=== PATIENT | female | born 1950 | race Caucasian/White ===

== ENCOUNTER → 2023-10-22 16:34 | Outpatient (REF) | payer MEDICARE, SELFPAY | LOC: PAVMRI 16:34 | PROVIDERS: ATTENDING PHYSICIAN Orthopaedic Surgery; FAMILY PHYSICIAN Family Medicine | DX: M25.512 Pain in left shoulder (principal); M25.511 Pain in right shoulder | CPT/HCPCS: 73221 ==

== ENCOUNTER 2023-10-28 07:08 | Inpatient (IN) | payer MEDICARE, SELFPAY ==
--- NOTE | 2023-09-23 12:23 | CM ---
Patient is scheduled for an elective L THR on 10/28/23. Spoke with patient prior to surgery via telephone. Patient had a R TKR (2018) and L TKR (2016). Reintroduced role of Orthopedic Navigator. Patient reports that she lives alone in a two story
home. There are three steps to enter and a flight of steps to the second floor. She currently functions independently and uses a cane. She also has a rolling walker, raised toilet seat with rails and shower seat. She has had VN services through
[facility]. PCP is Dr. Ye Kowalski.
Discussed orthopedic program and post surgical plans. Reviewed anticipated length of stay and that goal is for her to return home at discharge. Also reviewed outpatient PT. Patient is in agreement with tentative plan and will go directly to
outpatient PT at [facility] [place]. She states that her brother stay with her after surgery.
Patient will complete online education.
Plan: Orthopedic Navigator will remain available to assist with the care of patient and will reassess discharge needs after surgery.
[2023-10-07 14:14] VITALS: BMI 38.1
[2023-10-07 14:45] LABS: Hematocrit 36.2 % (37.0-47.0); Hemoglobin 11.6 g/dL (12.0-16.0); Mean Corpuscular Hgb 27.7 pg (27.0-31.0); Mean Corpuscular Volume 86.4 fL (81.0-99.0); Platelet Count 242 10^3/uL (130-400); Red Blood Cell Count 4.19 10^6/uL (4.20-5.40); Red Cell Dist. Width 13.3 % (11.5-14.5); White Blood Cell Count 5.3 10^3/uL (4.8-10.8)
[2023-10-07 15:40] LABS: ALT (SGPT) 18 U/L (0-35); AST (SGOT) 23 U/L (14-36); Albumin 4.3 g/dl (3.5-5.0); Alkaline Phosphatase 60 U/L (38-126); Blood Urea Nitrogen 20 mg/dl (7-17); Calcium 9.9 mg/dl (8.4-10.2); Carbon Dioxide 25 mmol/L (22-30); Chloride 105 mmol/L (98-107); Estimated Creatinine Clearance 62 ml/min; Glucose 103 mg/dl (70-99); Potassium 4.1 mmol/L (3.5-5.1); Sodium 140 mmol/L (135-145); Total Bilirubin 0.6 mg/dl (0.2-1.3); Total Protein 6.8 g/dl (6.3-8.2); eGFR > 60.00
[2023-10-07 15:59] VITALS: BMI 38.1
[2023-10-08 13:14] LABS: Glycohemoglobin (HgbA1c) 5.9 % (4.0-5.6)
[2023-10-28] VITALS (17 sets, daily range): BP systolic 99–165; BP diastolic 53–78; PULSE 60; O2SAT 95–96; BMI 38.1
[2023-10-28] MEDS: NORMOSOL-R 1000 IV ×2 (08:07→13:00)
[2023-10-28] MEDS: TYLENOL 650 MG PO ×5 (08:08→23:36)
[2023-10-28] MEDS: ROXICODONE 5 MG PO (11:29)
--- NOTE | 2023-10-28 13:23 | PTCARENOTE ---
1320: Patient arrived to 2S post L THR. Full head to toe assessment completed. B/L LE neurovascular assessment completed. Aquacell on L hip clean dry and intact. IVF running per order. Call mercedes within reach and bed in lowest position. Patients
friend at bedside.
[2023-10-28] MEDS: EDECRIN 50 MG PO (14:06)
[2023-10-28] MEDS: BUSPAR 15 MG PO ×2 (14:07→20:48)
[2023-10-28] MEDS: APRESOLINE 25 MG PO (14:07)
[2023-10-28] MEDS: VITAMIN D3 (cholecalciferol) 50 MCG PO (14:07)
[2023-10-28] MEDS: LOTREL 1 CAPSULE PO (14:07)
[2023-10-28] MEDS: SYNTHROID 50 MCG PO (14:07)
[2023-10-28] MEDS: DELTASONE 40 MG PO (14:07)
[2023-10-28] MEDS: PROTONIX 40 MG PO (14:07)
--- NOTE | 2023-10-28 15:20 | W.PN.UPDATE ---
Update Note
Progress Note Update
L hip OA s/p L SRAVAN w/ Dr Morgan 10/28/23
- s/p L TKA, 2016, and R TKA, 2018, by Dr Peraza
DVT prophylaxis - Eliquis at modified dosing, b/l venous compression devices
- Will resume home dosing of Eliquis on POD 3 if hemodynamically stable
HTN, on multidrug regimen - + parameters - monitor BP
PAF - monitor on tele
- Continue Sotalol
- Eliquis as stated above
CHFpEF - reduce hourly IVF rate to prevent fluid overload
Asthma, mild and intermittent, pulmonary nodule, and ALIVIA, compliant with CPAP (setting 10) - monitor O2
- IS
- Resume CPAP HS
- Resume inhalers
GERD - continue PPI therapy
Peripheral neuropathy - consider Gabapentin or Lyrica
Ambulatory dysfunction with previous falls - on fall precautions
Mild anemia - non-invasive hgb in AM
Obesity, BMI 38.1 - given elevated BMI, would benefit from abx upon d/c
Hyperlipidemia
Chronic peripheral edema
Mild to moderate mitral regurgitation
Mild to moderate tricuspid regurgitation
Hepatitis A 2006
Intra-abdominal biliary sepsis, VRE, 2011
Multilevel degenerative disc disease with stenosis
Kyphosis
Hypothyroidism
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 PET scan negative for systemic involvement
Eczema
OCD with panic disorder
Depression
Osteopenia
Insomnia
Vitamin D deficiency
Prediabetes, A1c 5.9
Remote history of tobacco abuse
[2023-10-28] MEDS: ROXICODONE 10 MG PO (15:31)
[2023-10-28] MEDS: ANCEF 5 IV (17:27)
[2023-10-28] MEDS: APRESOLINE PO ×2 (17:28→21:05)
[2023-10-28] MEDS: SYMBICORT 80/4.5 MCG INHALER 1 PUFF INH (19:56)
[2023-10-28] MEDS: BETAPACE PO (20:46)
[2023-10-28] MEDS: ELIQUIS 2.5 MG PO (20:48)
[2023-10-28] MEDS: BACTROBAN 2% OINTMENT 1 APPLIC NASAL (20:48)
[2023-10-28] MEDS: COLACE 100 MG PO (20:48)
[2023-10-28] MEDS: SENOKOT 17.1999999999999993 MG PO (20:48)
[2023-10-28] MEDS: CARDURA 16 MG PO (21:03)
[2023-10-29] VITALS (8 sets, daily range): BP systolic 143–189; BP diastolic 59–84; PULSE 59–60; O2SAT 95
[2023-10-29] MEDS: ANCEF 5 IV (00:03)
[2023-10-29] MEDS: TYLENOL 650 MG PO ×3 (03:32→12:29)
--- NOTE | 2023-10-29 04:09 | PTCARENOTE ---
Pt on Contact precautions transferred in her bed with all he belonging to [address] [place] room 2132 under the care of RN Pasha who was given a full report & accompanied pt to her new room at 04:00 on 10/28. All documentation completed up until 04:00am
including Non-Invasive Hgb.
--- NOTE | 2023-10-29 04:43 | PTCARENOTE ---
pt transfer to 2N. AAOx3 and anxious. SB in the monitor. no c/o pain. Lung sounds diminished at the bases, SaO2 95% RA. CPAP from home HS. pt appears comfortable in bed and will continue with tx plan
[2023-10-29] MEDS: SYNTHROID 50 MCG PO (05:57)
[2023-10-29] MEDS: SYMBICORT 80/4.5 MCG INHALER 1 PUFF INH (07:40)
[2023-10-29] MEDS: VITAMIN D3 (cholecalciferol) 50 MCG PO (08:15)
[2023-10-29] MEDS: ELIQUIS 2.5 MG PO (08:15)
[2023-10-29] MEDS: PROTONIX 40 MG PO (08:15)
[2023-10-29] MEDS: BETAPACE 120 MG PO (08:15)
[2023-10-29] MEDS: APRESOLINE 25 MG PO ×2 (08:15→12:29)
[2023-10-29] MEDS: ROXICODONE 5 MG PO (08:16)
[2023-10-29] MEDS: SENOKOT 17.1999999999999993 MG PO (08:16)
[2023-10-29] MEDS: COLACE 100 MG PO (08:16)
[2023-10-29] MEDS: BUSPAR 15 MG PO (08:16)
[2023-10-29] MEDS: EDECRIN 50 MG PO (08:17)
[2023-10-29] MEDS: BACTROBAN 2% OINTMENT 1 APPLIC NASAL (08:17)
[2023-10-29] MEDS: DELTASONE 40 MG PO (08:39)
[2023-10-29] MEDS: LOTREL 1 CAPSULE PO (08:39)
--- NOTE | 2023-10-29 09:04 | CM ---
Addendum entered by Silvina Acosta 10/29/23 13:13:
Patient did well in therapy. She has no concerns about going home and has updated her friend.
Original Note:
Reviewed chart and held rounds with PT, OT and nursing. Patient admitted as planned for elective L THR. Met with patient at bedside. Confirmed information previously obtained for assessment. Also discussed discharge plans. The plan is for patient to
return home at discharge. Her brother will be staying with her when she goes home. Patient will go directly to outpatient PT and will go to [facility]. She has an appointment scheduled for Thursday, 10/29.
Patient has all needed DME at home.
She will use [facility] pharmacy for discharge prescriptions
--- NOTE | 2023-10-29 14:49 | W.PN.ORTHO ---
Today's Communication / Plan
-
D/c today since clinically stable, did well w/ PT and OT.
Assessment
.
Distal Motor Intact: Yes
Dressing:
Clean, dry and intact.
Assessment:
L hip OA s/p L SRAVAN w/ Dr Morgan 10/28/23
- s/p L TKA, 2016, and R TKA, 2018, by Dr Peraza
DVT prophylaxis - Eliquis at modified dosing, b/l venous compression devices
- Will resume home dosing of Eliquis on POD 3 since hemodynamically stable
HTN, on multidrug regimen - + parameters - BPs stable overall
PAF - maintaining NSR/asymptomatic sinus svetlana on tele
- Continue Sotalol
- Eliquis as stated above
CHFpEF - reduced hourly IVF rate to prevent fluid overload
- No s/sx of acute CHF during admission
Asthma, mild and intermittent, pulmonary nodule, and ALIVIA, compliant with CPAP (setting 10) - O2 stable on RA
- IS
- Resumed CPAP HS
- Resumed inhalers
GERD - continue PPI therapy
Peripheral neuropathy - consider Gabapentin or Lyrica
Ambulatory dysfunction with previous falls - on fall precautions
Mild anemia - non-invasive hgb 12.2 POD 1
Obesity, BMI 38.1 - given elevated BMI, would benefit from Cefadroxil upon d/c
Hyperlipidemia
Chronic peripheral edema
Mild to moderate mitral regurgitation
Mild to moderate tricuspid regurgitation
Hepatitis A 2006
Intra-abdominal biliary sepsis, VRE, 2011
Multilevel degenerative disc disease with stenosis
Kyphosis
Hypothyroidism
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 PET scan negative for systemic involvement
Eczema
OCD with panic disorder
Depression
Osteopenia
Insomnia
Vitamin D deficiency
Prediabetes, A1c 5.9
Remote history of tobacco abuse
Plan
.
Surgery / Date: L SRAVAN robins/ Dr Morgan 10/28/23
DVT Prophylaxis: Other (Eliquis )
Activity:
Out of bed.
PT/OT
Discharge Plan: Home w/ Outpatient PT
Subjective
.
.:
Patient resting comfortably in her chair this AM.
Hip pain overall well controlled w/ current pain meds.
Denies any new significant complaints.
Eager for potential d/c today.
Vital Signs and Labs
.
Vital Signs and Labs:
Lab Results
10/07/23 14:10
10/07/23 14:10
Temp Pulse Resp BP Pulse Ox
97.9 F 55 18 145/65 95
10/29/23 11:26 10/29/23 12:29 10/29/23 11:26 10/29/23 12:29 10/29/23 11:26
Non-invasive Hgb result: 12.2
Physical Exam
-
HEENT: No pallor, cyanosis, or jaundice. Throat clear.
NECK: Supple. No JVD.
RESPIRATORY: Lungs clear to auscultation.
CVS: S1, S2 normal. RRR.�
ABDOMEN: Soft, non-tender. No distension.
EXTREMITIES: Strength equal, no calf pain with palpation/dorsiflexion. Calves soft.
MILLING MACHINIST: AOx3. No focal deficits. senior training specialist grossly intact
--- NOTE | 2023-10-29 15:03 | W.DS.TRANS ---
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
-
Discharge Instructions:
Discharge Diagnosis/Procedures L hip OA s/p L SRAVAN w/ Dr Morgan 10/28/23
Diet Other diet
Additional Diets Diabetic carb controlled x1 week for wound
healing/infection prevention; then resume
regular diet.
Activity As tolerated,With Walker
Driving Restrictions Not until seen by your Dr
Bathing Restrictions OK to Shower
Other Services PT
Wound Care Dressing to be removed 1 week post-surgery.
Specialty Instructions Weigh Daily
Instructions:
Stand-Alone Forms: Total Hip/Knee Replacement D/C
Changes to Home Medications: Yes
Discharge Medications:
DC Medications w/original date entered in [employer]
levalbuterol tartrate 45 mcg/actuation aerosol inhaler 2 puff inhalation Q6HPRN PRN sob/wheezing 06/26/15
omeprazole 20 mg tablet,delayed release 20 mg PO DAILY Gastrointestinal Issue 06/26/15
apixaban 5 mg tablet (Eliquis) 5 mg PO BID Blood Clot Prevention/Tx 10/02/23
budesonide-formoterol HFA 80 mcg-4.5 mcg/actuation aerosol inhaler (Symbicort) 1 puff inhalation BID Lung/Breathing Issues 10/02/23
buspirone 15 mg tablet 15 mg PO BID Mental Health/Anxiety 10/02/23
cholecalciferol (vitamin D3) 50 mcg (2,000 unit) capsule (Vitamin D3) 50 mcg PO DAILY Supplement 10/02/23
levothyroxine 50 mcg tablet 50 mcg PO DAILY Thyroid 10/02/23
sotalol 120 mg tablet 120 mg PO BID Arrhythmia 10/02/23
mupirocin 2 % topical ointment 1 applic intranasal BID #1 tube 10/07/23
Saccharomyces boulardii 250 mg capsule (Florastor) 250 mg PO BID #14 caps 10/29/23
acetaminophen 500 mg tablet (Tylenol Extra Strength) 1,000 mg (2 x 500 mg) PO Q6H #0 tabs 10/29/23
amlodipine 5 mg-benazepril 40 mg capsule 1 cap PO DAILY Blood Pressure #0 caps 10/29/23
apixaban 2.5 mg tablet (Eliquis) 2.5 mg PO BID #3 tabs 10/29/23
cefadroxil 500 mg capsule 500 mg PO Q12H #14 caps 10/29/23
docusate sodium 100 mg capsule 100 mg PO BID #30 caps 10/29/23
doxazosin 8 mg tablet 16 mg (2 x 8 mg) PO HS Blood Pressure #0 tabs 10/29/23
ethacrynic acid 25 mg tablet (Edecrin) 50 mg (2 x 25 mg) PO DAILY Fluid Retention/Swelling #0 tabs 10/29/23
hydralazine 25 mg tablet 25 mg PO QID Blood Pressure #0 tabs 10/29/23
oxycodone 5 mg tablet 5 - 10 mg (1 - 2 x 5 mg) PO Q4H PRN moderate-severe pain #30 tabs 10/29/23
prednisone 10 mg tablet 40 mg (4 x 10 mg) PO TAPER #20 tabs 10/29/23
prochlorperazine maleate 5 mg tablet 5 mg PO Q8H PRN nausea and vomiting #30 tabs 10/29/23
sennosides 8.6 mg tablet (Senna Laxative) 17.2 mg (2 x 8.6 mg) PO BID #30 tabs 10/29/23
Home Medication Changes
Saccharomyces boulardii 250 mg capsule (Florastor) 250 mg PO BID #14 caps 10/29/23
acetaminophen 500 mg tablet (Tylenol Extra Strength) 1,000 mg (2 x 500 mg) PO Q6H #0 tabs 10/29/23
apixaban 2.5 mg tablet (Eliquis) 2.5 mg PO BID #3 tabs 10/29/23 - until POD 3
cefadroxil 500 mg capsule 500 mg PO Q12H #14 caps 10/29/23
docusate sodium 100 mg capsule 100 mg PO BID #30 caps 10/29/23
oxycodone 5 mg tablet 5 - 10 mg (1 - 2 x 5 mg) PO Q4H PRN moderate-severe pain #30 tabs 10/29/23
prednisone 10 mg tablet 40 mg (4 x 10 mg) PO TAPER #20 tabs 10/29/23
prochlorperazine maleate 5 mg tablet 5 mg PO Q8H PRN nausea and vomiting #30 tabs 10/29/23
sennosides 8.6 mg tablet (Senna Laxative) 17.2 mg (2 x 8.6 mg) PO BID #30 tabs 10/29/23
Pending Results: No
== END 2023-10-29 16:00 | disposition home or self-care (01) | DRG 470 ==
LOC: 2 NORTH 07:08
PROVIDERS: ADMITTING PHYSICIAN Orthopaedic Surgery; FAMILY PHYSICIAN Internal Medicine
PROC: 5A09357 Assistance with Respiratory Ventilation, Less than 24 Consecutive Hours, Continuous Positive Airway Pressure (ICD-10-PCS; 2023-10-29)
PROC: 0SRB03A Replacement of Left Hip Joint with Ceramic Synthetic Substitute, Uncemented, Open Approach (ICD-10-PCS; 2023-10-29)
DX: M16.12 Unilateral primary osteoarthritis, left hip (principal); I50.32 Chronic diastolic (congestive) heart failure; C82.69 Cutaneous follicle center lymphoma, extranodal and solid organ sites; I11.0 Hypertensive heart disease with heart failure; I48.0 Paroxysmal atrial fibrillation; E78.5 Hyperlipidemia, unspecified; I08.1 Rheumatic disorders of both mitral and tricuspid valves; J45.20 Mild intermittent asthma, uncomplicated; R91.1 Solitary pulmonary nodule; G47.33 Obstructive sleep apnea (adult) (pediatric); K21.9 Gastro-esophageal reflux disease without esophagitis; G62.9 Polyneuropathy, unspecified; R26.2 Difficulty in walking, not elsewhere classified; M40.209 Unspecified kyphosis, site unspecified; E03.9 Hypothyroidism, unspecified; D64.9 Anemia, unspecified; L30.9 Dermatitis, unspecified; F42.9 Obsessive-compulsive disorder, unspecified; F41.0 Panic disorder [episodic paroxysmal anxiety]; F32.A Depression, unspecified; M85.80 Other specified disorders of bone density and structure, unspecified site; G47.00 Insomnia, unspecified; E66.01 Morbid (severe) obesity due to excess calories; E55.9 Vitamin D deficiency, unspecified; R73.03 Prediabetes; Z79.01 Long term (current) use of anticoagulants; Z68.38 Body mass index [BMI] 38.0-38.9, adult; Z87.891 Personal history of nicotine dependence; Z86.19 Personal history of other infectious and parasitic diseases; Z79.51 Long term (current) use of inhaled steroids; Z79.890 Hormone replacement therapy
CPT/HCPCS: 36415; 73502; 80053; 83036; 85027; 86850; 86900; 86901; 87070; 94640; 97110; 97116; 97163; 97167; 97530; 97535; C1713; C1776

== ENCOUNTER → 2024-06-24 14:51 | Outpatient (REF) | payer MEDICARE, SELFPAY | LOC: PAVMRI 14:51 | PROVIDERS: ATTENDING PHYSICIAN Internal Medicine Hematology & Oncology; FAMILY PHYSICIAN Family Medicine; REFERRING PHYSICIAN Internal Medicine | DX: C82.60 Cutaneous follicle center lymphoma, unspecified site (principal); C82.69 Cutaneous follicle center lymphoma, extranodal and solid organ sites; G83.10 Monoplegia of lower limb affecting unspecified side | CPT/HCPCS: 72158; A9575 ==